=== PATIENT | male | born 1975 | race Caucasian/White ===

== ENCOUNTER 2018-07-01 05:52 | Emergency (ER) | payer OTHER ==
[~2018-07-01] VITALS: Ht 172.7 cm; Wt 102.1 kg
[2018-07-01 06:20] VITALS: BP_SYST 125
[2018-07-01] MEDS ORDERED: KETOROLAC TROMETHAMINE 30 MG VIAL IVP ONE (06:45)
[2018-07-01] MEDS ORDERED: NACL 0.9% 1,000 ML IV ONE (06:45)
[2018-07-01] MEDS ORDERED: IOHEXOL 100 ML IV ONE (07:25)
[2018-07-01 07:28] LABS: BASOPHILS # (AUTO) 0.1 K/uL (0.0-0.2); BASOPHILS % (AUTO) 0.7 % (0.0-2.0); EOSINOPHILS # (AUTO) 0.1 K/uL (0.0-0.4); EOSINOPHILS % (AUTO) 1.5 % (0.0-4.0); HEMOGLOBIN 12.2 g/dL (14.0-18.0); LYMPHOCYTES # (AUTO) 1.7 K/uL (1.0-5.5); LYMPHOCYTES % (AUTO) 17.5 % (20.5-51.5); MEAN CORPUSCULAR HEMOGLOBIN 27 pg (27-31); MEAN CORPUSCULAR HGB CONC 32 % (32-36); MEAN CORPUSCULAR VOLUME 83 fL (79.0-98.0); MONOCYTES # (AUTO) 0.6 K/uL (0.0-1.0); NEUTROPHILS # (AUTO) 7.3 K/uL (1.8-7.7); NEUTROPHILS % (AUTO) 74.3 % (40.0-70.0); PLATELET COUNT (AUTO) 318 K/uL (130-430); RED BLOOD CELL COUNT(AUTO) 4.61 MIL/uL (4.2-6.2); WHITE BLOOD COUNT (AUTO) 9.8 K/uL (4.8-10.8)
[2018-07-01 07:37] LABS: CALCIUM 8.5 mg/dL (8.4-11.0); CREATININE 0.87 mg/dL (0.55-1.30); POTASSIUM 3.2 mmol/L (3.5-5.1)
[2018-07-01] MEDS ORDERED: MORPHINE 2 MG/ML INJ. SYRINGE IVP ONE (08:15)
[2018-07-01] MEDS ORDERED: CLINDAMYCIN 600 MG in D5W 50 ML IV ONE (08:15)
[2018-07-01] MEDS ORDERED: CLINDAMYCIN 600 mg/50mL D5W 50 ML IV ONE (08:23)
== END 2018-07-01 08:33 | disposition home or self-care (01) ==
LOC: SED 05:52
DX: L03.213 Periorbital cellulitis (principal)
CPT/HCPCS: 36415; 70481; 80048; 85025; 87040; 96365; 96375; 99285; J1885; J2270; J3490; J7030; Q9967